=== PATIENT | female | born 1960 | race Caucasian/White ===

== ENCOUNTER → 2018-02-03 | Day surgery (SDC) | payer OTHER ==
[~2018-02-03] VITALS: Ht 167.6 cm; Wt 108.9 kg
[~2018-02-03] MED LIST: VICODIN 5/500 505 MG PO
--- NOTE | ~2018-02-03 | O ---
[place], [place] OPERATIVE NOTE NAME: BECKI GURROLA UNIT #: [id number] ROOM: DOCTOR: ZELDA BHANDARI MD BIRTHDATE: [birth year] DOS: 02/03/2018 INDICATION FOR PROCEDURE: A 57-year-old patient who has presented with chief complaint of concern about colonic screening, undergoing investigation. ALLERGIES: No known medication. FAMILY HISTORY: Noncontributory. PAST SURGICAL HISTORY: Appendectomy, hysterectomy, and cholecystectomy. SOCIAL HISTORY: Nonsmoker and nonalcohol consumer. PROCEDURE: Today's procedure part of investigation is colonoscopy. PREMEDICATION: Propofol. SCOPE: Olympus forward-viewing colonoscope 10L video. REPORT: After putting the patient in left lateral position and application of lubricant to the scope, the scope was introduced; thereafter under the visualization, I advanced through the length of colon without difficulty. Base of the cecum explored, appendiceal was identified. Ileocecal valve was defined. Scope was gradually withdrawn from ascending, transverse, and descending colon. The patient extubated and tolerated the procedure well. IMPRESSION: Diverticulosis. PLAN AND DISCUSSION: High fiber fruit diet. ACTIVITY: Ad bucky. FOLLOWUP: Routinely with you in office, p.r.n. visit with us in [facility]. I thank you very much indeed. [place], [place] OPERATIVE NOTE NAME: BECKI GURROLA UNIT #: [id number] ROOM: DOCTOR: ZELDA BHANDARI MD BIRTHDATE: [birth year] ZELDA BHANDARI MD CM:OPRECORD:OPERATIVE NOTE [id number] ZELDA BHANDARI MD 02/03/18 1010 interface
[2018-02-03 07:17] VITALS: BP 132/84
[2018-02-03 08:14] VITALS: BP 161/96
[2018-02-03 08:29] VITALS: BP 139/100
[2018-02-03 08:44] VITALS: BP 168/105
== END | disposition home or self-care (01) ==
LOC: SDC 01-29 08:45
DX: Z12.11 Encounter for screening for malignant neoplasm of colon (principal); K57.30 Diverticulosis of large intestine without perforation or abscess without bleeding; I10 Essential (primary) hypertension; G89.29 Other chronic pain; E66.9 Obesity, unspecified; Z98.890 Other specified postprocedural states; Z90.49 Acquired absence of other specified parts of digestive tract; Z90.710 Acquired absence of both cervix and uterus; Z68.38 Body mass index [BMI] 38.0-38.9, adult; Z98.891 History of uterine scar from previous surgery